=== PATIENT | female | born 1975 | race Caucasian/White ===

== ENCOUNTER 2016-04-03 06:42 | Emergency (ER) | payer MEDICAID ==
[~2016-04-03] VITALS: Ht 160 cm; Wt 95.3 kg
[2016-04-03 06:44] VITALS: BP 117/78
== END 2016-04-03 08:45 | disposition left against medical advice (07) ==
LOC: ER 06:46
DX: R52 Pain, unspecified (principal); Z53.21 Procedure and treatment not carried out due to patient leaving prior to being seen by health care provider